=== PATIENT | female | born 1955 | race Caucasian/White ===

== ENCOUNTER 2019-03-13 23:59 | Emergency (ER) | payer BC ==
[~2019-03-13] VITALS: Ht 162.6 cm; Wt 91.7 kg
[~2019-03-13 23:59] MED LIST: ASPI-903 PO; DOCU-144 PO; GLIP10TA14 PO; INSU100I31 SQ; LOVA20TA PO; METF100010 PO
[2019-03-14 00:21] VITALS: Ht 162.6 cm; Wt 91.7 kg
--- NOTE | 2019-03-14 02:42 | ERD ---
ER Documentation Chief Complaint Chief Complaint dizzy w/N&V & nape pains since 2029; hx DM,HTN HPI This 63-year-old female presents to the emergency room for evaluation of remittent dizziness, high blood pressure, and high blood sugar at home. The patient states that she checked her blood pressure and it was elevated, she states that she checked her blood sugar was elevated and she got nervous and came to the ER. She denies any headache, blurred vision, chest pain, shortness of breath, nausea or vomiting associated with this. ROS All systems reviewed and are negative except as per history of present illness. Medications Home Meds Active Scripts Docusate Sodium* (Colace*) 100 Mg Capsule, 100 MG PO TID, #30 CAP Prov:REAGAN MUÑOZ 05/10/16 Reported Medications Glipizide* (Glipizide*) 10 Mg Tablet, 20 MG PO BID, TAB 08/02/16 Lovastatin* (Lovastatin*) 20 Mg Tablet, 40 MG PO HS, TAB 05/09/16 Aspirin* (Aspirin* Chew) 81 Mg Tab.chew, 81 MG PO DAILY, TAB.CHEW 05/09/16 Insulin Degludec (Tresiba Flextouch U-100) 100 Unit/1 Ml Insuln.pen, 60 UNIT SQ QHS 05/09/16 Metformin Hcl* (Metformin Hcl*) 1,000 Mg Tablet, 1000 MG PO WITH BREAKFAST DINNE, #30 TAB 05/09/16 Allergies Allergies: Coded Allergies: No Known Drug Allergies (Unverified Allergy, Unknown, 08/02/16) PMhx/Soc History of Surgery: Yes (HYSTERECTOMY, RT BREAST MASTECTOMY) Anesthesia Reaction: Yes (UNABLE TO WAKE UP AND DIFFICULTY BREATHING) Hx Neurological Disorder: No Hx Respiratory Disorders: No Hx Cardiac Disorders: No Hx Psychiatric Problems: No Hx Miscellaneous Medical Probl: Yes (HYPERLIPIDEMIA, BREAST CA) Hx Alcohol Use: No Hx Substance Use: No Hx Tobacco Use: Yes Smoking Status: Current every day smoker Physical Exam Vitals Vital Signs Date Temp Pulse Resp B/P (MAP) Pulse Ox O2 O2 Flow FiO2 Time Delivery Rate 03/14/19 80 16 135/60 98 Room Air 01:46 (85) 03/14/19 98.3 96 18 185/78 97 00:21 (113) Physical Exam Const: No acute distress Head: Atraumatic Eyes: Normal Conjunctiva ENT: Normal External Ears, Nose and Mouth. Neck: Full range of motion. No meningismus. Resp: Clear to auscultation bilaterally Cardio: Regular rate and rhythm, no murmurs Abd: Soft, non tender, non distended. Normal bowel sounds Skin: No petechiae or rashes Back: No midline or flank tenderness Ext: No cyanosis, or edema Neur: Awake and alert Psych: Normal Mood and Affect Result Diagram: 03/14/1913403/14/19134 Results 24 hrs Laboratory Tests Test 03/14/19 01:35 White Blood Count 5.9 10^3/ul Red Blood Count 4.99 10^6/ul Hemoglobin 12.3 g/dl Hematocrit 40.5 % Mean Corpuscular Volume 81.2 fl Mean Corpuscular Hemoglobin 24.6 pg Mean Corpuscular Hemoglobin Concent 30.4 g/dl Red Cell Distribution Width 15.3 % Platelet Count 117 10^3/UL Mean Platelet Volume 11.5 fl Immature Granulocytes % 0.300 % Neutrophils % 68.7 % Lymphocytes % 17.1 % Monocytes % 12.2 % Eosinophils % 1.5 % Basophils % 0.2 % Nucleated Red Blood Cells % 0.0 /100WBC Immature Granulocytes # 0.020 10^3/ul Neutrophils # 4.0 10^3/ul Lymphocytes # 1.0 10^3/ul Monocytes # 0.7 10^3/ul Eosinophils # 0.1 10^3/ul Basophils # 0.0 10^3/ul Nucleated Red Blood Cells # 0.0 10^3/ul Sodium Level 141 mmol/L Potassium Level 3.6 mmol/L Chloride Level 103 mmol/L Carbon Dioxide Level 24 mmol/L Anion Gap 14 Blood Urea Nitrogen 14 mg/dl Creatinine 0.69 mg/dl Est Glomerular Filtrat Rate mL/min > 60 mL/min Glucose Level 240 mg/dl Calcium Level 10.4 mg/dl Total Bilirubin 0.4 mg/dl Direct Bilirubin 0.00 mg/dl Indirect Bilirubin 0.4 mg/dl Aspartate Amino Transf (AST/SGOT) 41 IU/L Alanine Aminotransferase (ALT/SGPT) 46 IU/L Alkaline Phosphatase 142 IU/L Troponin I Pending Total Protein 7.2 g/dl Albumin 4.3 g/dl Globulin 2.90 g/dl Albumin/Globulin Ratio 1.48 Procedures/MDM EKG: Rate/Rhythm: [Normal Sinus Rhythm] QRS, ST, T-waves: [No changes consistent w/ acute ischemia] Impression: [No evidence of ischemia or arrhythmia] This 63-year-old female presents to the ER for evaluation of elevated blood pressure, and elevated blood sugar. She does have a history of type 2 diabetes however her lab work does not demonstrate any signs of DKA. Her blood pressure was 148/60 my evaluation and the patient had no complaints. I do believe there is a component of anxiety which brought the patient to the ER. Her lab work does not demonstrate any significant lab abnormalities and the patient is stable for outpatient follow-up for continued management of chronic hypertension. Smoking Cessation Therapy: Pt. was lectured for greater than 3 minutes on the health risks of continued smoking and the benefits of cessation. Departure Diagnosis: Primary Impression: Hypertension Additional Impression: Tobacco abuse Condition: Fair GLORY CASTRO DO Mar 14, 2019 02:42
[2019-03-14 02:47] VITALS: BP 125/59; PULSE 81; RESP 18
== END 2019-03-14 03:08 | disposition home or self-care (01) ==
LOC: E/R 23:59
DX: I10 Essential (primary) hypertension (principal); F17.210 Nicotine dependence, cigarettes, uncomplicated; E11.9 Type 2 diabetes mellitus without complications; Z79.82 Long term (current) use of aspirin; Z79.4 Long term (current) use of insulin; Z85.3 Personal history of malignant neoplasm of breast
CPT/HCPCS: 80053; 82962; 84484; 85025; 93005; Z7502